=== PATIENT | male | born 1950 | race Caucasian/White ===

== ENCOUNTER 2021-12-13 13:00 | Emergency (ER) | payer BC ==
[~2021-12-13] VITALS: Ht 167.6 cm; Wt 74.8 kg
--- NOTE | 2021-12-13 13:12 | NUR ---
[id number] from home, c/o neck pain x 2 days 9/10 pain scale. PLACED ON BED, AAOX4, IN PAIN 8/10. PATIENT IS UNABLE TO WALK TODAY BECAUSE OF PAIN VERBALIZED.
[2021-12-13] MEDS ORDERED: DIAZEPAM 5 MG/ML 2 ML DISP.SYRIN IV ONE (15:00)
[2021-12-13] MEDS ORDERED: FENTANYL PF 100MCG/2ML AMPUL IV ONE (15:00)
[2021-12-13] MEDS ORDERED: DIAZEPAM 5 MG/ML 2 ML DISP.SYRIN ONE (15:28)
[2021-12-13] MEDS ORDERED: FENTANYL PF 100MCG/2ML AMPUL ONE (15:28)
--- NOTE | 2021-12-13 15:30 | NUR ---
PATIENT WENT FOR CT VIA [facility]
[2021-12-13 15:37] LABS: BASOPHILS # (AUTO) 0.1 K/uL (0.0-0.2); BASOPHILS % (AUTO) 0.7 % (0.0-2.0); HEMATOCRIT 44 % (39-51); HEMOGLOBIN 14.8 g/dL (13.5-17.5); LYMPHOCYTES % (AUTO) 7.7 % (20.0-44.0); MEAN CORPUSCULAR HGB CONC 34 g/dl (31.0-36.0); MEAN CORPUSCULAR VOLUME 84 fL (80-96); MONOCYTES % (AUTO) 8.1 % (2.0-12.0); NEUTROPHILS # (AUTO) 10.6 K/uL (1.8-8.9); NEUTROPHILS % (AUTO) 83.5 % (43.0-81.0); PLATELET COUNT (AUTO) 246 K/uL (150-450); RED BLOOD CELL COUNT(AUTO) 5.26 MIL/uL (4.5-6.0); WHITE BLOOD COUNT (AUTO) 12.7 K/uL (4.3-11.0)
[2021-12-13 15:43] LABS: CREATININE 0.7 mg/dL (0.6-1.3); POTASSIUM 3.8 mmol/L (3.5-5.1)
[2021-12-13] MEDS ORDERED: CYCL5TAB PO ×2 (17:47→18:06)
[2021-12-13] MEDS ORDERED: IBUP-1955 PO ×2 (17:47→18:06)
--- NOTE | 2021-12-13 18:45 | NUR ---
IV removed. Catheter intact and site benign. Pressure and 4x4 applied to site. No bleeding noted.Patient discharged to home in stable condition. Written and verbal after care instructions given. Patient verbalizes understanding of instruction.
[2021-12-13 19:32] VITALS: BP 144/86
== END 2021-12-13 18:45 | disposition home or self-care (01) ==
LOC: ER 13:01
DX: M43.6 Torticollis (principal); M50.10 Cervical disc disorder with radiculopathy, unspecified cervical region; M62.838 Other muscle spasm; I10 Essential (primary) hypertension; E78.5 Hyperlipidemia, unspecified; E03.9 Hypothyroidism, unspecified; Z86.69 Personal history of other diseases of the nervous system and sense organs; Z85.21 Personal history of malignant neoplasm of larynx
CPT/HCPCS: 36415; 70490; 72128; 80048; 85025; 96374; 96375; 99284; J3010; J3360